=== PATIENT | female | born 1995 | race Two or more races ===

== ENCOUNTER 2020-07-19 12:19 | Emergency (ER) | payer MEDICAID, OTHER ==
[~2020-07-19] VITALS: Ht 154.9 cm; Wt 63.5 kg
[2020-07-19 12:42] VITALS: BP 116/79
== END 2020-07-19 13:19 | disposition home or self-care (01) ==
LOC: ER 12:19
DX: T81.49XA Infection following a procedure, other surgical site, initial encounter (principal)

== ENCOUNTER 2023-07-05 13:04 | Inpatient (IN) | payer MEDICAID ==
[~2023-07-05] VITALS: Ht 154.9 cm; Wt 62.0 kg
[2023-07-05 14:04] LABS: Basophils # (auto) 0 10 ^3/uL (0-0.2); Basophils % (auto) 0.4 % (0.0-2.0); Eosinophils # (auto) 0 10 ^3/uL (0-0.8); Eosinophils % (auto) 0.5 % (0.0-7.0); Hematocrit 45.1 % (36.0-46.0); Hemoglobin 15.3 g/dL (12.2-16.2); Lymphocytes # (auto) 1.1 10 ^3/uL (0.4-5.4); Lymphocytes % (auto) 16.7 % (10.0-50.0); Mean Corpuscular Hemoglobin 29.9 pg (28.0-32.0); Mean Corpuscular Volume 87.8 fL (80.0-100.0); Monocytes # (auto) 0.5 10 ^3/uL (0-1.3); Monocytes % (auto) 7.8 % (0.0-12.0); Neutrophils % (auto) 74.6 % (37.0-80.0); Nucleated Red Blood Cells % 0.1 %; Red Blood Cells 5.13 10^6/uL (4.0-5.20); Red Cell Distribution Width 12.8 % (11.8-14.3); White Blood Cell 6.7 10^3/uL (4.4-10.8)
[2023-07-05 14:22] LABS: Alanine Aminotransferase 290 U/L (7-40); Albumin 4.6 g/dL (3.2-4.8); Alkaline Phosphatase 214 U/L (46-116); Anion Gap 9 (5-15); Aspartate Aminotransferase 63 U/L (13-40); Bilirubin, Total 4.3 mg/dL (0.2-1.0); Calcium 9.3 mg/dL (8.5-10.1); Carbon Dioxide 24 mmol/L (20-30); Chloride 105 mmol/L (98-107); Glucose 100 mg/dL (74-106); Potassium 3.6 mmol/L (3.5-5.1); Sodium 138 mmol/L (136-145); Total Protein 7.3 g/dL (5.7-8.2)
[2023-07-05 14:25] LABS: BUN/Creatinine Ratio 8.6 (10.0-20.0); Blood Urea Nitrogen < 5 mg/dL (9-23)
[2023-07-05 15:14] LABS: Lipase 54 U/L (12-53)
[2023-07-05] MEDS ORDERED: MORPHINE SULFATE 4 MG/ML SYR/VIAL IV ONE (17:45)
[2023-07-05] MEDS ORDERED: PANTOPRAZOLE 40 MG/10 ML VIAL INJ IV ONE (17:45)
[2023-07-05] MEDS ORDERED: ONDANSETRON HCL 4 MG/2 ML VIAL IV ONE (17:45)
[2023-07-05] MEDS ORDERED: SODIUM CHLORIDE 0.9% 1,000 ML IVB ONE (17:45)
[2023-07-05] MEDS ORDERED: MORPHINE SULFATE INJ 2 MG/ml SYRG IV PRN (18:45)
[2023-07-05] MEDS ORDERED: KETOROLAC TROMETH 30 MG/ML 1ML VIAL IV PRN (18:45)
[2023-07-05] MEDS ORDERED: ACETAMINOPHEN 325 MG TAB PO PRN (18:45)
[2023-07-05] MEDS ORDERED: KETOROLAC TROMETH 30 MG/ML 1ML VIAL IV ONE (18:45)
[2023-07-05] MEDS ORDERED: ONDANSETRON HCL 4 MG/2 ML VIAL IV PRN (18:45)
[2023-07-05 19:40] LABS: INR 1.04 (0.9-1.15); Prothrombin Time 10.9 sec (9.3-11.8)
[2023-07-05 19:46] LABS: Urine Bacteria NONE SEEN /hpf (None Seen); Urine Blood 3+ /uL (Negative); Urine Clarity HAZY (Clear); Urine Color Brown (Yellow); Urine Mucus FEW (None Seen); Urine Protein, UAD 2+ (Negative); Urine Specific Gravity 1.035 (1.001-1.035); Urine WBC 54 /hpf (0 - 5); Urine pH 6.5 (5.0-8.0)
[2023-07-05] MEDS ORDERED: KETOROLAC TROMETH 60MG/2ML VIAL ONE (21:09)
[2023-07-05 23:30] VITALS: PULSE 72; RESP 13; O2SAT 100
[2023-07-05] MEDS: SODIUM CHLORIDE 0.9% 1,000 ML IV SCH (23:49)
[2023-07-06] MEDS ORDERED: diphenhdrAMINE HCL 25 MG CAP PO ONE (01:15)
[2023-07-06] MEDS: SODIUM CHLORIDE 0.9% 1,000 ML IV SCH (04:12)
[2023-07-06 06:01] LABS: Basophils # (auto) 0 10 ^3/uL (0-0.2); Basophils % (auto) 0.3 % (0.0-2.0); Eosinophils # (auto) 0.1 10 ^3/uL (0-0.8); Eosinophils % (auto) 0.9 % (0.0-7.0); Hematocrit 37.7 % (36.0-46.0); Hemoglobin 12.7 g/dL (12.2-16.2); Lymphocytes # (auto) 1.6 10 ^3/uL (0.4-5.4); Lymphocytes % (auto) 22.7 % (10.0-50.0); Mean Corpuscular Hemoglobin 29.7 pg (28.0-32.0); Mean Corpuscular Hgb Conc. 33.7 g/dL (32.0-36.0); Mean Corpuscular Volume 88.1 fL (80.0-100.0); Monocytes # (auto) 0.5 10 ^3/uL (0-1.3); Monocytes % (auto) 7.4 % (0.0-12.0); Neutrophils # (auto) 4.7 10 ^3/uL (1.6-8.6); Neutrophils % (auto) 68.7 % (37.0-80.0); Red Blood Cells 4.28 10^6/uL (4.0-5.20); White Blood Cell 6.8 10^3/uL (4.4-10.8)
[2023-07-06 06:42] LABS: Alanine Aminotransferase 203 U/L (7-40); Albumin 3.7 g/dL (3.2-4.8); Alkaline Phosphatase 176 U/L (46-116); Anion Gap 8 (5-15); Aspartate Aminotransferase 52 U/L (13-40); Calcium 7.8 mg/dL (8.7-10.4); Carbon Dioxide 21 mmol/L (20-30); Chloride 108 mmol/L (98-107); Glucose 101 mg/dL (74-106); Potassium 3.1 mmol/L (3.5-5.1); Sodium 137 mmol/L (136-145)
[2023-07-06 07:02] LABS: BUN/Creatinine Ratio 8.9 (10.0-20.0); Blood Urea Nitrogen < 5 mg/dL (9-23)
[2023-07-06 07:14] VITALS: PULSE 71; RESP 16; O2SAT 97
[2023-07-06] MEDS ORDERED: KETOROLAC TROMETH 60MG/2ML VIAL IV PRN (09:00)
[2023-07-06 12:15] VITALS: BP 95/58; PULSE 83; RESP 19; TEMP 98.5; O2SAT 100
[2023-07-06] MEDS ORDERED: POTASSIUM CHL 20MEQ/100ML 100 ML IV ONE (12:15)
[2023-07-06 16:05] VITALS: BP 97/58; PULSE 70; RESP 19; TEMP 98.5; O2SAT 99
[2023-07-08 08:25] LABS: Hepatitis B Surface Antigen Negative (Negative)
[2023-07-08 08:46] LABS: Hepatitis A Ab IgM Negative; Hepatitis B Core IgM Negative
[2023-07-08 08:47] LABS: Hepatitis C Antibody Negative (Negative)
== END 2023-07-06 18:01 | disposition left against medical advice (07) ==
LOC: ER 13:04 → OVERFLOW 18:45 → WEST WING 07-06 09:52
PROVIDERS: ADMIT Nurse Practitioner Family; ATTEND Internal Medicine Geriatric Medicine
DX: K80.21 Calculus of gallbladder without cholecystitis with obstruction (principal); Z53.29 Procedure and treatment not carried out because of patient's decision for other reasons; Z83.3 Family history of diabetes mellitus
CPT/HCPCS: 36415; 74181; 76705; 76801; 76817; 80053; 80074; 81001; 83690; 84702; 85025; 85610; 96365; 96375; C9113; G0378; J1885; J2405

== ENCOUNTER 2024-05-03 08:54 | Emergency (ER) | payer MEDICAID ==
[~2024-05-03] VITALS: Ht 154.9 cm; Wt 67.6 kg
[2024-05-03 10:11] LABS: Basophils # (auto) 0 10 ^3/uL (0-0.2); Basophils % (auto) 0.6 % (0.0-2.0); Eosinophils # (auto) 0.1 10 ^3/uL (0-0.8); Eosinophils % (auto) 0.9 % (0.0-7.0); Hematocrit 44.2 % (36.0-46.0); Hemoglobin 14.9 g/dL (12.2-16.2); Lymphocytes # (auto) 2.4 10 ^3/uL (0.4-5.4); Lymphocytes % (auto) 29.7 % (10.0-50.0); Mean Corpuscular Hemoglobin 29.3 pg (28.0-32.0); Mean Corpuscular Hgb Conc. 33.7 g/dL (32.0-36.0); Mean Corpuscular Volume 87.2 fL (80.0-100.0); Monocytes # (auto) 0.6 10 ^3/uL (0-1.3); Monocytes % (auto) 7.3 % (0.0-12.0); Neutrophils # (auto) 4.9 10 ^3/uL (1.6-8.6); Neutrophils % (auto) 61.5 % (37.0-80.0); Platelet Count (auto) 308 10^3/uL (140-450); Red Blood Cells 5.07 10^6/uL (4.0-5.20); Red Cell Distribution Width 14.1 % (11.8-14.3)
[2024-05-03 10:52] LABS: Chloride 108 mmol/L (98-107); Sodium 139 mmol/L (136-145)
[2024-05-03 10:54] LABS: Calcium 9.2 mg/dL (8.7-10.4)
[2024-05-03 10:57] LABS: Anion Gap 9 (5-15); Carbon Dioxide 22 mmol/L (20-30)
[2024-05-03 10:58] LABS: BUN/Creatinine Ratio 9.1 (10.0-20.0); Blood Urea Nitrogen 6 mg/dL (9-23); Glucose 72 mg/dL (74-106)
[2024-05-03 11:38] LABS: Urine Bacteria FEW /hpf (None Seen); Urine Blood 3+ /uL (Negative); Urine Clarity Turbid (Clear); Urine Color Colorless (Yellow); Urine Protein, UAD TRACE (Negative); Urine Specific Gravity 1.012 (1.001-1.035); Urine Urobilinogen Normal (Negative); Urine WBC 6 /hpf (0 - 5); Urine pH 7.5 (5.0-9.0)
[2024-05-03 13:26] VITALS: BP 110/62; PULSE 88; RESP 18; TEMP 98.4; O2SAT 98
== END 2024-05-03 13:21 | disposition home or self-care (01) ==
LOC: ER 08:54
DX: O20.0 Threatened abortion (principal); R10.2 Pelvic and perineal pain; Z3A.01 Less than 8 weeks gestation of pregnancy
CPT/HCPCS: 36415; 76801; 76817; 80048; 81001; 84702; 85025; 86900; 86901